=== PATIENT | male | born 1990 | race Caucasian/White ===

== ENCOUNTER 2020-05-24 15:03 | Emergency (ER) | payer OTHER, SELFPAY ==
[2020-05-24 15:14] VITALS: BP 123/72; PULSE 76; RESP 16; TEMP 35.7; O2SAT 99
--- NOTE | 2020-05-24 15:19 | ED.SKABFB ---
HPI - Skin/Abscess/Foreign Bdy General Chief complaint: Skin/Abscess/Foreign Body Stated complaint: abscess upper right aqrm Time Seen by Provider: 05/24/20 15:18 Source: patient and RN notes reviewed Mode of arrival: ambulatory Limitations: no limitations History of Present Illness HPI narrative: 29-year-old male presents with concern for possible abscess on his right upper outer arm. Reports area is been there for approximately 4 days. He denies any drainage from the area. Reports he poked the area with a needle today with no drainage. Denies injury to the arm. Denies fever, malaise. Reports he has been taking ibuprofen for pain. MD complaint: abscess/boil Related Data Allergies Allergy/AdvReac Type Severity Reaction Status Date / Time tramadol Allergy Severe rash, Verified 03/21/19 12:10 throat swelling Review of Systems Review of Systems: Narrative: CONSTITUTIONAL: Denies malaise, chills, sweats, or fever. CARDIOVASCULAR: Denies chest pain, palpitations RESPIRATORY: Denies dyspnea. SKIN: Reports red, painful, swollen area in his left upper outer arm MUSCULOSKELETAL: Denies musculoskeletal pain NEUROLOGIC: Denies numbness, weakness All systems reviewed & are unremarkable except as noted in HPI and below PMFSH Social History Social History Gender identity (if verbalized by the patient): Male Comments At time of signature, agree with nursing past medical, surgical, social and family history. There is no relevant family history pertinent to the presenting complaint Exam Narrative: Exam Narrative: GENERAL: Well-appearing, well-nourished, and in no acute distress. HEAD: Normocephalic, atraumatic. EYES: PERRLA, conjunctivae clear ENT: Mucous membranes moist. NECK: Supple. CHEST: No respiratory distress. Speaks in full sentences. HEART: Regular rate and rhythm. EXTREMITIES: Right arm has grossly normal range of motion, grossly normal strength and sensation. SKIN: Warm, dry. Approximately 9 cm in diameter area of erythema, induration, warmth, tenderness with central fluctuance noted to the right upper lateral arm. NEURO: Alert and oriented x3. PSYCH: Normal mood and affect Course Course Emergency Course: Patient is aware of diagnosis, understands and agrees to treatment plan. Anticipatory guidance given. Patient agrees to follow-up as directed and is aware of reasons to seek care at the emergency department. Portions of this record may have been created with voice recognition software Vital Signs Vital signs: Vital Signs Temperature 96.3 F L 05/24/20 15:14 Pulse Rate 76 05/24/20 15:14 Respiratory Rate 16 05/24/20 15:14 Blood Pressure 123/72 05/24/20 15:14 Pulse Oximetry 99 05/24/20 15:14 Temperature 96.3 F L 05/24/20 15:14 Pulse Rate 76 05/24/20 15:14 Respiratory Rate 16 05/24/20 15:14 Blood Pressure 123/72 05/24/20 15:14 Pulse Oximetry 99 05/24/20 15:14 Reviewed. Procedures Abscess I/D upper extremity: Date of Incision: 05/24/20 Time of Incision: 15:25 Side (if applicable): right Local Anesthetic: lidocaine 1% Amount of anesthesia used (mL): 2 Technique: incised with #11 blade Irrigation: No Packing used?: none I&D Results: Pus and Blood MDM - Skin/Abscess/Foreign Bdy MDM Narrative Medical decision making narrative: Verbal consent were obtained. The indication for the procedure was clinical suspicion for an abscess. The most fluctuant portion of the abscess was incised with an 11 blade scalpel. The abscess cavity of explored and evacuated, all loculations were broken up with a curved hemostat. I was present for this entire procedure and there were no complications Critical Care Time Critical Care Time Critical Care Time: No Discharge Plan Discharge Clinical Impression: Abscess of skin or subcutaneous tissue Qualifiers: Site of cutaneous abscess: extremity Site of cutaneous abscess of ex
== END 2020-05-24 15:41 | disposition home or self-care (01) ==
PROVIDERS: Emergency Provider Nurse Practitioner; PCP Emergency Medicine
DX: L02.413 Cutaneous abscess of right upper limb (principal)
CPT/HCPCS: 10060; 99213; G0463